=== PATIENT | male | born 1965 | race Caucasian/White ===

== ENCOUNTER → 2017-09-16 | Outpatient (CLI) | payer OTHER ==
[2017-09-16 13:30] LABS: ABSOLUTE BASOPHILS # (AUTO) 0.1 10^3/uL (0.0-0.2); ABSOLUTE EOSINOPHILS # (AUTO) 0.3 10^3/uL (0.0-0.6); ABSOLUTE LYMPHOCYTES (AUTO) 1.4 10^3/uL (0.5-4.7); ABSOLUTE MONOCYTES (AUTO) 0.5 10^3/uL (0.1-1.4); BASOPHILS % (AUTO) 1.2 % (0-2); EOSINOPHILS % (AUTO) 3.1 % (0-6); HEMOGLOBIN 15.7 g/dL (13.5-17.0); HGB HCT DIFFERENCE 2.1; MEAN CORPUSCULAR HEMOGLOBIN 30.5 pg (27.0-33.4); MEAN CORPUSCULAR VOLUME 87 fl (80-97); MONOCYTES % (AUTO) 5.8 % (3-13); RED BLOOD COUNT 5.16 10^6/uL (4.35-5.55); RED CELL DISTRIBUTION WIDTH 15.2 % (11.5-14.0); SEGMENTED NEUTROPHILS % (AUTO) 74.9 % (42-78); WHITE BLOOD COUNT 9.4 10^3/uL (4.0-10.5)
[2017-09-16 13:58] LABS: ALANINE AMINOTRANSFERASE 30 U/L (21-72); ALKALINE PHOSPHATASE 99 U/L (38-126); ANION GAP 12 (5-19); ASPARTATE AMINO TRANSFERASE 15 U/L (17-59); BILIRUBIN,DIRECT 0.5 mg/dL (0.0-0.4); BILIRUBIN,TOTAL 1.1 mg/dL (0.2-1.3); BLOOD UREA NITROGEN 15 mg/dL (7-20); CALCIUM 9.7 mg/dL (8.4-10.2); CARBON DIOXIDE 26 mmol/L (22-30); CHLORIDE 102 mmol/L (98-107); CHOLESTEROL 212.24 mg/dL (0-200); CREATININE RESULT 1.02 mg/dL (0.52-1.25); Direct HDL 34 mg/dL (>40); GLUCOSE 280 mg/dL (75-110); POTASSIUM 4.1 mmol/L (3.6-5.0); SODIUM 139.6 mmol/L (137-145); TOTAL PROTEIN 7.1 g/dL (6.3-8.2); TRIGLYCERIDES 160 mg/dL (<150)
[2017-09-16 14:09] LABS: DIRECT LDL 169 mg/dL (<100)
== END ==
LOC: CCC 12:31
DX: E78.4 Other hyperlipidemia (principal); E10.8 Type 1 diabetes mellitus with unspecified complications; I10 Essential (primary) hypertension
CPT/HCPCS: 36415; 80053; 80061; 83036; 84153; 84443; 85025

== ENCOUNTER 2018-01-26 13:18 | Emergency (ER) | payer SELFPAY ==
--- NOTE | 2018-01-26 14:58 | ER Document Report ---
ED Medical Screen (RME) - General Chief Complaint: Rectal Bleeding Stated Complaint: ABDOMINAL PAIN Time Seen by Provider: 01/26/18 14:56 Notes: pt had dark stool this am with some bright red blood. mild abd cramping. no prev episodes. no colonoscopies. not lightheaded. TRAVEL OUTSIDE OF THE [place] IN LAST 30 DAYS: No - Related Data Allergies/Adverse Reactions: Penicillins Allergy (Verified 01/26/18 13:19) Past Medical History - Social History Chew tobacco use (# tins/day): No Frequency of alcohol use: None Drug Abuse: None - Past Medical History Cardiac Medical History: Reports: Hx Coronary Artery Disease Endocrine Medical History: Reports: Hx Diabetes Mellitus Type 2 Renal/ Medical History: Denies: Hx Peritoneal Dialysis Past Surgical History: Reports: Hx Cardiac Surgery - 2 stents., Hx Coronary Artery Bypass Graft - x3 in 1992.
[2018-01-26 15:21] LABS: ABSOLUTE BASOPHILS # (AUTO) 0.1 10^3/uL (0.0-0.2); ABSOLUTE EOSINOPHILS # (AUTO) 0.1 10^3/uL (0.0-0.6); ABSOLUTE LYMPHOCYTES (AUTO) 1.6 10^3/uL (0.5-4.7); ABSOLUTE MONOCYTES (AUTO) 0.6 10^3/uL (0.1-1.4); ABSOLUTE NEUT (AUTO) 7.6 10^3/uL (1.7-8.2); BASOPHILS % (AUTO) 1.4 % (0-2); EOSINOPHILS % (AUTO) 1.1 % (0-6); HEMATOCRIT 49.6 % (37.9-51.0); HEMOGLOBIN 16.8 g/dL (13.5-17.0); LYMPHOCYTES % (AUTO) 15.5 % (13-45); MEAN CORPUSCULAR HEMOGLOBIN 30.3 pg (27.0-33.4); MEAN CORPUSCULAR HGB CONC 33.8 g/dL (32.0-36.0); MEAN CORPUSCULAR VOLUME 90 fl (80-97); MONOCYTES % (AUTO) 6.5 % (3-13); PLATELET COUNT 254 10^3/uL (150-450); RED BLOOD COUNT 5.54 10^6/uL (4.35-5.55); RED CELL DISTRIBUTION WIDTH 14.8 % (11.5-14.0); SEGMENTED NEUTROPHILS % (AUTO) 75.5 % (42-78); TOTAL CELLS COUNTED % (AUTO) 100 %
[2018-01-26 15:40] LABS: ALANINE AMINOTRANSFERASE 32 U/L (21-72); ALBUMIN 4.6 g/dL (3.5-5.0); ALKALINE PHOSPHATASE 69 U/L (38-126); ANION GAP 10 (5-19); ASPARTATE AMINO TRANSFERASE 18 U/L (17-59); BILIRUBIN,DIRECT 0.2 mg/dL (0.0-0.4); BILIRUBIN,TOTAL 0.6 mg/dL (0.2-1.3); BLOOD UREA NITROGEN 18 mg/dL (7-20); CALCIUM 10.4 mg/dL (8.4-10.2); CARBON DIOXIDE 31 mmol/L (22-30); CHLORIDE 101 mmol/L (98-107); GLUCOSE 120 mg/dL (75-110); POTASSIUM 3.8 mmol/L (3.6-5.0); SODIUM 141.7 mmol/L (137-145); TOTAL PROTEIN 7.5 g/dL (6.3-8.2)
--- NOTE | 2018-01-26 16:12 | ER Document Report ---
ED GI Bleed / Rectal Pain - General Chief Complaint: Rectal Bleeding Stated Complaint: ABDOMINAL PAIN Time Seen by Provider: 01/26/18 14:56 Mode of Arrival: Ambulatory Information source: Patient Notes: 52-year-old male presents to ED for dark stools this morning that is of bright red blood on the paper when he wiped later. He had some mild abdominal cramping earlier but no pain at this time. He states he has been told by his primary care doctor that he needed to get a colonoscopy. He states he has not had any dizziness or lightheadedness. TRAVEL OUTSIDE OF THE [place] IN LAST 30 DAYS: No - HPI Patient complains to provider of: Bright red bld from rect., Dark/tarry stools Onset: This morning Timing/Duration: Intermittent Quality of pain: Cramping - Being earlier none at this time Severity of symptoms: None Pain Level: Denies Emesis description: Bright red blood - 1 paper Rectal bleeding: Bright red blood on paper Rectal foreign body: No Rectal pain with intercourse: No Associated symptoms: None. denies: Constipation, Fainting/dizzy/lightheade, Hard stools Exacerbated by: Denies Relieved by: Denies Similar symptoms previously: Yes Recently seen / treated by doctor: No - Related Data Allergies/Adverse Reactions: Penicillins Allergy (Verified 01/26/18 13:19) Past Medical History - General Information source: Patient - Social History Smoking Status: Current Every Day Smoker Cigarette use (# per day): Yes - 1-1/2-2 packs per day Chew tobacco use (# tins/day): No Smoking Education Provided: Yes - 4 minutes Frequency of alcohol use: None Drug Abuse: None Occupation: None Lives with: Spouse/Significant other Family History: Other - Adopted Patient has suicidal ideation: No Patient has homicidal ideation: No - Past Medical History Cardiac Medical History: Reports: Hx Coronary Artery Disease Pulmonary Medical History: Reports: None EENT Medical History: Reports: None Neurological Medical History: Reports: None Endocrine Medical History: Reports: Hx Diabetes Mellitus Type 2 Renal/ Medical History: Reports: None Malignancy Medical History: Reports None GI Medical History: Reports: None Musculoskeltal Medical History: Reports None Skin Medical History: Reports None Psychiatric Medical History: Reports: None Traumatic Medical History: Reports: None Infectious Medical History: Reports: None Past Surgical History: Reports: Hx Cardiac Surgery - 2 stents., Hx Coronary Artery Bypass Graft - x3 in 1992. Review of Systems - Review of Systems Notes: Constitutional: [PRESENT: as per HPI. ABSENT: chills, fever(s), headache(s), weight gain, weight loss] Eyes: [ABSENT: visual disturbances] Ears: [ABSENT: hearing changes] Cardiovascular: [ABSENT: chest pain, dyspnea on exertion, edema, orthropnea, palpitations] Respiratory: [ABSENT: cough, hemoptysis] Gastrointestinal: constipation, diarrhea, hematemesis, hematochezia, nausea, vomiting] dark stools with blood on the paper Genitourinary: [ABSENT: dysuria, hematuria] Musculoskeletal: [ABSENT: joint swelling] Integumentary: [ABSENT: rash, wounds] Neurological: [ABSENT: abnormal gait, abnormal speech, confusion, dizziness, focal weakness, syncope] Psychiatric: [ABSENT: anxiety, depression, homicidal ideation, suicidal ideation ] Endocrine: [ABSENT: cold intolerance, heat intolerance, menstrual abnormalities , polydipsia, polyuria] Hematologic/Lymphatic: [ABSENT: easy bleeding, easy bruising, lymphadenopathy] Physical Exam - Vital signs Vitals: Temp Pulse Resp BP Pulse Ox 98.6 F 51 L 16 157/82 H 95 01/26/18 13:32 01/26/18 13:32 01/26/18 13:32 01/26/18 13:32 01/26/18 13:32 - Notes Notes: PHYSICAL EXAMINATION: GENERAL: Well-appearing, well-nourished and in no acute distress. HEAD: Atraumatic, normocephalic. EYES: Pupils equal round and reactive to light, extraocular movements intact, sclera anicteric, conjunctiva are normal. ENT: Nares patent, oropharynx clear without exudates. Moist mucous membranes. NECK: Normal range of motion, supple without lymphadenopathy LUNGS: Breath sounds clear to auscultation bilaterally and equal. No wheezes rales or rhonchi. HEART: Regular rate and rhythm without murmurs ABDOMEN: Soft, nontender, nondistended abdomen. No guarding, no rebound. No masses appreciated. Rectal: Excoriated area around the rectum. Positive occult blood. Small amount of hard stool in the rectal vault. Musculoskeletal: Normal range of motion, no pitting or edema. No cyanosis. NEUROLOGICAL: Cranial nerves grossly intact. Normal speech, normal gait. Normal sensory, motor exams PSYCH: Normal mood, normal affect. SKIN: Warm, Dry, normal turgor, no rashes or lesions noted. Course - Re-evaluation Re-evalutation: 01/26/18 18:22 Discussed exam and occult blood with patient as well as the other labs. Copy of labs given to patient to follow-up with his primary doctor. Recommended patient follow-up with GI and have a colonoscopy for this continued episodic rectal bleed. Patient states he had already been recommended the colonoscopy and he was supposed to schedule it. I told him that he would be better off to schedule it sooner than later. Patient and significant other verbalized agreement. - Vital Signs Vital signs: Temp Pulse Resp BP Pulse Ox 98.6 F 54 L 16 156/82 H 96 01/26/18 16:24 01/26/18 16:24 01/26/18 13:32 01/26/18 16:24 01/26/18 16:24 - Laboratory Result Diagrams: 01/26/18 15:10 01/26/18 15:10 Laboratory results interpreted by me: 01/26/18 01/26/18 15:10 15:10 RDW 14.8 H Carbon Dioxide 31 H Glucose 120 H Calcium 10.4 H Discharge - Discharge Clinical Impression: Rectal bleed HTN (hypertension) Qualifiers: Hypertension type: unspecified Qualified Code(s): I10 - Essential (primary) hypertension Condition: Stable Disposition: HOME, SELF-CARE Instructions: Family Physicians / Practices, Gastroenterology Additional Instructions: Rectal Bleeding, Unclear Cause No definite cause has been found for the rectal bleeding you have experienced. Among the possible causes are internal or external hemorrhoids ( internal hemorrhoids can't be felt on the outside), an anal fissure (a crack at the anal ring), infections or inflammatory diseases of the colon, tumors or polyps, or diverticula (diverticula are outpouchings from the colon wall). To establish a cause for your bleeding (or at least make certain there is no serious problem such as a tumor), further evaluation will be necessary. This may include special X-rays, or passage of a scope up into the colon. Be sure to keep your follow-up appointment. Should you develop brisk bleeding, abdominal pain, fever, lightheadedness, or fever, call the doctor or return at once. Acetaminophen Acetaminophen may be taken for pain relief or fever control. It's much safer than aspirin, offering a wider range of "safe" dosages. It is safe during . Some brand names are Tylenol, Panadol, Datril, Anacin 3, Tempra, and Liquiprin. Acetaminophen can be repeated every four hours. The following are maximum recommended dosages: WEIGHT Dose Drops Elixir Chewable( 80mg) (LBS.) drprs=droppers tsp=teaspoon 6 40 mg .4 ml (1/2) 6-11 80 mg .8 ml (full) 1/2 tsp 1 tab 12-16 120 mg 1 1/2 drprs 3/4 tsp 1 1/2 tabs 17-23 160 mg 2 drprs 1 tsp 2 tabs 24-30 240 mg 3 drprs 1 1/2 tsp 3 tabs 30-35 320 mg 2 tsp 4 tabs 36-41 360 mg 2 1/4 tsp 4 1 /2 tabs 42-47 400 mg 2 1/2 tsp 5 tabs 48-53 480 mg 3 tsp 6 tabs 54-59 520 mg 3 1/4 tsp 6 1 /2 tabs 60-64 560 mg 3 1/2 tsp 7 tabs 65-70 600 mg 3 3/4 tsp 7 1 /2 tabs 71-76 640 mg 4 tsp 8 tabs 77-82 720 mg 4 1/2 tsp 9 tabs 83-88 800 mg 5 tsp 10 tabs >89 pounds or adults 650 mg to 900 mg Acetaminophen can be repeated every four hours. Maximum daily dose not to exceed 4000 mg. These maximum recommended dosages are slightly higher than the dosages written on the product container, but these dosages are very safe and well below the toxic dosage for acetaminophen. You need to follow-up with a director of financial planning within the next several days and get an appointment to schedule a colonoscopy. You also had some firm stool on your rectal exam MiraLAX for the next several days would help this. FOLLOW-UP CARE: If you have been referred to a physician for follow-up care, call the physician s office for an appointment as you were instructed or within the next two days. If you experience worsening or a significant change in your symptoms, notify the physician immediately or return to the Emergency Department at any time for re-evaluation. Forms: Smoking Cessation Education, Elevated Blood Pressure
[2018-01-26 16:26] VITALS: BP 156/82
== END 2018-01-26 16:33 | disposition home or self-care (01) ==
LOC: ER 13:18
DX: K62.5 Hemorrhage of anus and rectum (principal); I10 Essential (primary) hypertension; E11.9 Type 2 diabetes mellitus without complications; I25.10 Atherosclerotic heart disease of native coronary artery without angina pectoris; F17.210 Nicotine dependence, cigarettes, uncomplicated; Z71.6 Tobacco abuse counseling; Z95.5 Presence of coronary angioplasty implant and graft; Z95.1 Presence of aortocoronary bypass graft; Z88.0 Allergy status to penicillin
CPT/HCPCS: 36415; 80053; 82272; 85025; 99283

== ENCOUNTER 2018-03-29 20:13 | Emergency (ER) | payer SELFPAY ==
[2018-03-29] MEDS ORDERED: IPRATROPIUM/ALBUTEROL 0.5-2.5 MG/3 ML AMPUL NEB ONE (20:29)
[2018-03-29] MEDS ORDERED: PREDNISONE 20 MG TABLET PO ONE (20:29)
[2018-03-29] MEDS ORDERED: ACETAMINOPHEN 325 MG TABLET PO ONE (20:30)
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
[2018-03-29] MEDS ORDERED: HYDROCODONE/ACETAMINOPHEN 5-325 MG (6 TAB/ER DISP) PO PRN (21:06)
[2018-03-29] MEDS ORDERED: DOXYCYCLINE HYCLATE 100 MG TABLET PO ONE (21:06)
[2018-03-29] MEDS ORDERED: ALBUTEROL SULFATE HFA (90 MCG/PUFF) 8 GM MDI (1 MDI/ER DISP) IH ONE (21:06)
[2018-03-29 23:01] VITALS: BP 160/83
== END 2018-03-29 22:50 | disposition home or self-care (01) ==
LOC: ER 20:13
DX: J44.1 Chronic obstructive pulmonary disease with (acute) exacerbation (principal); S00.81XA Abrasion of other part of head, initial encounter; S00.83XA Contusion of other part of head, initial encounter; V09.20XA Pedestrian injured in traffic accident involving unspecified motor vehicles, initial encounter; F17.200 Nicotine dependence, unspecified, uncomplicated; I25.10 Atherosclerotic heart disease of native coronary artery without angina pectoris; E78.00 Pure hypercholesterolemia, unspecified; E11.9 Type 2 diabetes mellitus without complications; Z95.1 Presence of aortocoronary bypass graft
CPT/HCPCS: 94640; 99284; 71046; 70486; J7512; J3490; J7620

== ENCOUNTER 2018-04-02 12:48 | Emergency (ER) | payer SELFPAY ==
[2018-04-02 12:53] VITALS: BP 139/91
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
[2018-04-02 13:42] LABS: ABSOLUTE BASOPHILS # (AUTO) 0.1 10^3/uL (0.0-0.2); ABSOLUTE EOSINOPHILS # (AUTO) 0.2 10^3/uL (0.0-0.6); ABSOLUTE LYMPHOCYTES (AUTO) 1.1 10^3/uL (0.5-4.7); ABSOLUTE MONOCYTES (AUTO) 0.5 10^3/uL (0.1-1.4); ABSOLUTE NEUT (AUTO) 8.5 10^3/uL (1.7-8.2); BASOPHILS % (AUTO) 0.8 % (0-2); EOSINOPHILS % (AUTO) 1.9 % (0-6); HEMATOCRIT 50.1 % (37.9-51.0); HEMOGLOBIN 17.2 g/dL (13.5-17.0); LYMPHOCYTES % (AUTO) 10.3 % (13-45); MEAN CORPUSCULAR HEMOGLOBIN 31.3 pg (27.0-33.4); MEAN CORPUSCULAR HGB CONC 34.4 g/dL (32.0-36.0); MEAN CORPUSCULAR VOLUME 91 fl (80-97); MONOCYTES % (AUTO) 4.4 % (3-13); PLATELET COUNT 272 10^3/uL (150-450); RED BLOOD COUNT 5.51 10^6/uL (4.35-5.55); RED CELL DISTRIBUTION WIDTH 14.2 % (11.5-14.0); SEGMENTED NEUTROPHILS % (AUTO) 82.6 % (42-78); TOTAL CELLS COUNTED % (AUTO) 100 %; WHITE BLOOD COUNT 10.3 10^3/uL (4.0-10.5)
[2018-04-02 14:38] LABS: ALANINE AMINOTRANSFERASE 39 U/L (21-72); ALKALINE PHOSPHATASE 65 U/L (38-126); ANION GAP 15 (5-19); ASPARTATE AMINO TRANSFERASE 19 U/L (17-59); BILIRUBIN,DIRECT 0.4 mg/dL (0.0-0.4); BILIRUBIN,TOTAL 0.9 mg/dL (0.2-1.3); BLOOD UREA NITROGEN 16 mg/dL (7-20); CALCIUM 10.4 mg/dL (8.4-10.2); CARBON DIOXIDE 24 mmol/L (22-30); CHLORIDE 106 mmol/L (98-107); GLUCOSE 215 mg/dL (75-110); POTASSIUM 3.8 mmol/L (3.6-5.0); SODIUM 144.8 mmol/L (137-145); TOTAL PROTEIN 6.9 g/dL (6.3-8.2)
[2018-04-02 14:39] LABS: ACETAMINOPHEN < 10 ug/mL (10-30); ALCOHOL < 10 mg/dL (NONE DETECTED); SALICYLATE < 1.0 mg/dL (2.0-20.0)
[2018-04-02 14:53] LABS: APPEARANCE,URINE CLEAR; BILIRUBIN,URINE NEGATIVE (NEGATIVE); COLOR,URINE YELLOW; GLUCOSE, URINE 50 mg/dL (NEGATIVE); KETONES,URINE NEGATIVE (NEGATIVE); LEUKOCYTE ESTERASE,URINE NEGATIVE (NEGATIVE); NITRITE,URINE NEGATIVE (NEGATIVE); PROTEIN,URINE 100 mg/dL (NEGATIVE)
[2018-04-02 15:22] LABS: URINE AMPHETAMINES SCREEN NEGATIVE; URINE BARBITURATES SCREEN NEGATIVE; URINE BENZODIAZEPINES SCREEN NEGATIVE; URINE COCAINE SCREEN NEGATIVE; URINE MARIJUANA (THC) SCREEN NEGATIVE; URINE METHADONE SCREEN NEGATIVE; URINE PHENCYCLIDINE SCREEN NEGATIVE
[2018-04-02] MEDS ORDERED: CITALOPRAM HYDROBROMIDE 20 MG TABLET PO ONE (15:32)
[2018-04-02] MEDS ORDERED: BUSPIRONE HCL 10 MG TABLET PO ONE (15:32)
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
--- NOTE | 2018-04-02 19:28 | EKG REPORT ---
SEVERITY:- ABNORMAL ECG - ACCELERATED JUNCTIONAL ESCAPE RHYTHM VENTRICULAR PREMATURE COMPLEX LEFT BUNDLE BRANCH BLOCK : Confirmed by: John Angel MD 02-Apr-2018 19:28:19
== END 2018-04-02 16:14 | disposition home or self-care (01) ==
LOC: ER 12:48
DX: F41.9 Anxiety disorder, unspecified (principal); F32.9 Major depressive disorder, single episode, unspecified; Z63.0 Problems in relationship with spouse or partner; I10 Essential (primary) hypertension; E78.5 Hyperlipidemia, unspecified; F17.200 Nicotine dependence, unspecified, uncomplicated
CPT/HCPCS: 36415; 80053; 80307; 81001; 82962; 85025; 93005; 93010; 99285

== ENCOUNTER 2018-07-06 07:54 | Emergency (ER) | payer SELFPAY ==
[2018-07-06] MEDS ORDERED: ASPIRIN 81 MG TABLET, CHEWABLE PO ONE (08:15)
--- NOTE | 2018-07-06 08:16 | ER Document Report ---
ED Cardiac - General Chief Complaint: Chest Pain Stated Complaint: CHEST PAIN Time Seen by Provider: 07/06/18 08:14 TRAVEL OUTSIDE OF THE [place] IN LAST 30 DAYS: No - Related Data Allergies/Adverse Reactions: Penicillins Allergy (Verified 07/06/18 07:56) Past Medical History - Social History Family History: Other - Adopted - Past Medical History Cardiac Medical History: Reports: Hx Coronary Artery Disease, Hx Hypercholesterolemia, Hx Hypertension Pulmonary Medical History: Reports: Hx COPD Endocrine Medical History: Reports: Hx Diabetes Mellitus Type 2 Renal/ Medical History: Denies: Hx Peritoneal Dialysis Past Surgical History: Reports: Hx Cardiac Surgery - 2 stents., Hx Coronary Artery Bypass Graft - x3 in 1992. Discharge - Discharge Referrals: YAMILKA ARROYO MD [Primary Care Provider] - Follow up as needed
--- NOTE | 2018-07-06 08:31 | ER Document Report ---
ED Cardiac <LAMAR LATHAM - Last Filed: 07/06/18 10:44> - General Mode of Arrival: Ambulatory Information source: Patient TRAVEL OUTSIDE OF THE [place] IN LAST 30 DAYS: No <MARTIR ORTEGA - Last Filed: 07/06/18 11:06> - General Chief Complaint: Chest Pain Stated Complaint: CHEST PAIN Time Seen by Provider: 07/06/18 08:14 Notes: 52-year-old male that presents to the emergency department today with complaints of chest pain described as pressure that began at 0700 this morning. Patient also states that he had had left arm pain. Patient states that when he had this chest pain his heart was racing. On arrival here the patient was in atrial flutter with a heart rate of 124 when he was having pain. The patient 's resting heart rate is in the upper 50s and he is asymptomatic when his heart rate slows to a normal rate. Patient had a three-way bypass in 1992 and has had 2 stents placed with the last one being in 2007. Patient states when the pain begins he has associated shortness of breath. Patient takes aspirin but no other anticoagulants. Patient denies a history of CA. (MARTIR ORTEGA) - Related Data Allergies/Adverse Reactions: Penicillins Allergy (Verified 07/06/18 07:56) Past Medical History - Past Medical History Cardiac Medical History: Reports: Other - Atrial flutter <LAMAR LATHAM - Last Filed: 07/06/18 10:44> - General Information source: Patient - Social History Smoking Status: Current Every Day Smoker Cigarette use (# per day): Yes - 1.5-2ppd Frequency of alcohol use: None Drug Abuse: None Lives with: Family Family History: Reviewed & Not Pertinent, Other - Adopted - Past Medical History Cardiac Medical History: Reports: Hx Coronary Artery Disease, Hx Hypercholesterolemia, Hx Hypertension Pulmonary Medical History: Reports: Hx COPD Endocrine Medical History: Reports: Hx Diabetes Mellitus Type 2 Past Surgical History: Reports: Hx Coronary Artery Bypass Graft - x3 in 1992, Hx Coronary Stent - x2 - last stent placed in 2007 <MARTIR ORTEGA - Last Filed: 07/06/18 11:06> Review of Systems - Review of Systems Constitutional: No symptoms reported EENT: No symptoms reported Cardiovascular: See HPI, Chest pain, Other - pressure Respiratory: See HPI, Short of breath Gastrointestinal: No symptoms reported Genitourinary: No symptoms reported Male Genitourinary: No symptoms reported Musculoskeletal: No symptoms reported Skin: No symptoms reported Hematologic/Lymphatic: No symptoms reported Neurological/Psychological: No symptoms reported -: Yes All other systems reviewed and negative <MARTIR ORTEGA - Last Filed: 07/06/18 11:06> Physical Exam <LAMAR LATHAM - Last Filed: 07/06/18 10:44> <MARTIR ORTEGA - Last Filed: 07/06/18 11:06> - Vital signs Vitals: Resp Pulse Ox 19 92 07/06/18 08:14 07/06/18 08:14 - Notes Notes: Physical Exam: General: Alert, appears well. HEENT: Normocephalic. Atraumatic. PERRL. Extraocular movements intact. Oropharynx clear. Neck: Supple. Non-tender. Respiratory: No respiratory distress. Tachypneic. Wheezing bilaterally. Cardiovascular: Regular rate and rhythm. Abdominal: Normal Inspection. Non-tender. No distension. Normal Bowel Sounds. Back: Non-tender. No deformity or step off. Extremities: Moves all four extremities. Upper extremities: Normal inspection. Normal ROM. Lower extremities: Normal inspection. No edema. Normal ROM. Neurological: Normal cognition. AAOx4. Normal speech. Psychological: Normal affect. Normal Mood. Skin: Warm. Dry. Normal color. (MARTIR ORTEGA) Course - Laboratory Result Diagrams: 07/06/18 08:30 07/06/18 08:30 - Diagnostic Test Radiology reviewed: Image reviewed, Reports reviewed - Chest x-ray shows hyperinflated lungs without acute changes - EKG Interpretation by [place] EKG shows normal: Brick, Intervals, QRS Complexes, ST-T Waves Rate: Tachycardia - 124 Rhythm: A.Flutter Brick/QRS: LBBB - Consults Dr. Kauffman Time consulted: 10:40 Consulted provider: other - [facility]. <LAMAR LATHAM - Last Filed: 07/06/18 10:44> - Laboratory Result Diagrams: 07/06/18 08:30 07/06/18 08:30 <MARTIR ORTEGA - Last Filed: 07/06/18 11:06> - Vital Signs Vital signs: Temp Pulse Resp BP Pulse Ox 23 H 152/92 H 98 07/06/18 10:02 07/06/18 10:02 07/06/18 10:02 - Laboratory Laboratory results interpreted by me: 07/06/18 07/06/18 07/06/18 08:30 08:30 08:30 RDW 14.2 H Seg Neutrophils % 83.9 H Lymphocytes % 7.9 L Absolute Neutrophils 8.6 H Chloride 108 H Creatinine 1.27 H Glucose 409 H* Hemoglobin A1c % CK-MB (CK-2) 5.12 H Albumin 3.4 L 07/06/18 08:30 RDW Seg Neutrophils % Lymphocytes % Absolute Neutrophils Chloride Creatinine Glucose Hemoglobin A1c % 8.1 H CK-MB (CK-2) Albumin Critical Care Note - Critical Care Note Total time excluding time spent on procedures (mins): 50 <LAMAR LATHAM - Last Filed: 07/06/18 10:44> Discharge <LAMAR LATHAM - Last Filed: 07/06/18 10:44> <MARTIR ORTEGA - Last Filed: 07/06/18 11:06> - Discharge Clinical Impression: Atrial flutter with rapid ventricular response, Non-ST elevation myocardial infarction (NSTEMI), Poorly controlled diabetes mellitus, Tobacco abuse Condition: Fair [facility] Referrals: YAMILKA ARROYO MD [Primary Care Provider] - Follow up as needed Scribe Attestation: 07/06/18 08:58 I personally performed the services described in the documentation, reviewed and edited the documentation which was dictated to the scribe in my presence, and it accurately records my words and actions. (LAMAR LATHAM) Scribe Documentation - Scribe Written by Ziyadibe:: Kita Sheth, 07/06/2018 0922 acting as scribe for :: Riaz <MARTIR ORTEGA - Last Filed: 07/06/18 11:06>
[2018-07-06 08:57] LABS: ABSOLUTE BASOPHILS # (AUTO) 0.1 10^3/uL (0.0-0.2); ABSOLUTE EOSINOPHILS # (AUTO) 0.1 10^3/uL (0.0-0.6); ABSOLUTE LYMPHOCYTES (AUTO) 0.8 10^3/uL (0.5-4.7); ABSOLUTE MONOCYTES (AUTO) 0.6 10^3/uL (0.1-1.4); ABSOLUTE NEUT (AUTO) 8.6 10^3/uL (1.7-8.2); BASOPHILS % (AUTO) 1.2 % (0-2); EOSINOPHILS % (AUTO) 0.8 % (0-6); HEMATOCRIT 44.6 % (37.9-51.0); HEMOGLOBIN 15.2 g/dL (13.5-17.0); LYMPHOCYTES % (AUTO) 7.9 % (13-45); MEAN CORPUSCULAR HEMOGLOBIN 31.9 pg (27.0-33.4); MEAN CORPUSCULAR VOLUME 94 fl (80-97); MONOCYTES % (AUTO) 6.2 % (3-13); PLATELET COUNT 200 10^3/uL (150-450); RED BLOOD COUNT 4.76 10^6/uL (4.35-5.55); RED CELL DISTRIBUTION WIDTH 14.2 % (11.5-14.0); SEGMENTED NEUTROPHILS % (AUTO) 83.9 % (42-78); TOTAL CELLS COUNTED % (AUTO) 100 %; WHITE BLOOD COUNT 10.2 10^3/uL (4.0-10.5)
--- NOTE | 2018-07-06 09:05 | RADIOLOGY REPORT (SQ) ---
EXAM DESCRIPTION: CHEST SINGLE VIEW COMPLETED DATE/TIME: 07/06/2018 8:57 am REASON FOR STUDY: cp COMPARISON: 03/29/2018 EXAM PARAMETERS: NUMBER OF VIEWS: One view. TECHNIQUE: Single frontal radiographic view of the chest acquired. RADIATION DOSE: NA LIMITATIONS: None. FINDINGS: LUNGS AND PLEURA: Mild hyperinflation, unchanged finding. No opacities, masses or pneumot horax. No pleural effusion. MEDIASTINUM AND HILAR STRUCTURES: No masses. Contour normal. HEART AND VASCULAR STRUCTURES: Stable appearance. Normal vasculature. BONES: No acute findings. HARDWARE: Prior anterior median sternotomy and CABG. OTHER: No other significant finding. IMPRESSION: 1 No significant interval changes since the previous examination dated 03/29/2018. No acu te findings. TECHNICAL DOCUMENTATION: JOB ID: [id number] [email or web address] Rights Reserved Reading location - IP/workstation name: [email or web address]
[2018-07-06 09:15] LABS: ALANINE AMINOTRANSFERASE 54 U/L (21-72); ALBUMIN 3.4 g/dL (3.5-5.0); ALKALINE PHOSPHATASE 68 U/L (38-126); ANION GAP 10 (5-19); ASPARTATE AMINO TRANSFERASE 56 U/L (17-59); BILIRUBIN,DIRECT 0.3 mg/dL (0.0-0.4); BILIRUBIN,TOTAL 1.3 mg/dL (0.2-1.3); BLOOD UREA NITROGEN 20 mg/dL (7-20); CALCIUM 9.1 mg/dL (8.4-10.2); CARBON DIOXIDE 23 mmol/L (22-30); CHLORIDE 108 mmol/L (98-107); CREATINE KINASE 117 U/L (55-170); PHOSPHORUS 2.6 mg/dL (2.5-4.5); POTASSIUM 3.6 mmol/L (3.6-5.0); SODIUM 141.4 mmol/L (137-145); TOTAL PROTEIN 6.3 g/dL (6.3-8.2)
[2018-07-06 09:25] LABS: CREATINE KINASE MB 5.12 ng/mL (<4.55)
[2018-07-06 09:27] LABS: GLUCOSE 409 mg/dL (75-110)
[2018-07-06 09:30] LABS: TROPONIN I 2.33 ng/mL
[2018-07-06] MEDS ORDERED: HEPARIN SOD (PORCINE) 1,000 UNIT/ML 10 ML VIAL IV ONE (09:30)
[2018-07-06] MEDS ORDERED: HEPARIN SODIUM,PORCINE/D5W 25,000 UNIT/250 ML RTUINJ IV PRN (09:30)
[2018-07-06 09:42] LABS: INTERNATIONAL RATION (INR) 0.99; PROTHROMBIN TIME 13.6 SEC (11.4-15.4)
[2018-07-06 09:43] LABS: PARTIAL THROMBOPLASTIN TIME 28.1 SEC (23.5-35.8)
[2018-07-06] MEDS ORDERED: INSULIN REG, HUMAN 100 UNIT/ML 3 ML VIAL (PYX) IV ONE (09:49)
[2018-07-06] MEDS ORDERED: DILTIAZEM HCL/D5W 125 MG/125 ML RTUINJ IV PRN (10:03)
[2018-07-06] MEDS ORDERED: NICOTINE 21 MG/24 HR PATCH.TD24 TD ONE (10:46)
[2018-07-06 12:19] VITALS: BP 128/102
[2018-07-06] MEDS ORDERED: HEPARIN SOD (PORCINE) 1,000 UNIT/ML 10 ML VIAL IV PRN (12:31)
--- NOTE | 2018-07-06 12:53 | EKG REPORT ---
SEVERITY:- ABNORMAL ECG - ATRIAL FLUTTER, A-RATE 340 LEFT BUNDLE BRANCH BLOCK : Confirmed by: John Angel MD 06-Jul-2018 12:53:17
== END 2018-07-06 12:35 | disposition short-term general hospital (02) ==
LOC: EEVIPCON 07:54 → ER 07:54
DX: I48.92 Unspecified atrial flutter (principal); I21.4 Non-ST elevation (NSTEMI) myocardial infarction; I44.7 Left bundle-branch block, unspecified; R07.89 Other chest pain; E11.65 Type 2 diabetes mellitus with hyperglycemia; M79.602 Pain in left arm; J44.9 Chronic obstructive pulmonary disease, unspecified; R06.02 Shortness of breath; F17.210 Nicotine dependence, cigarettes, uncomplicated; I25.10 Atherosclerotic heart disease of native coronary artery without angina pectoris; I10 Essential (primary) hypertension; Z95.5 Presence of coronary angioplasty implant and graft; Z95.1 Presence of aortocoronary bypass graft; Z79.82 Long term (current) use of aspirin; Z88.0 Allergy status to penicillin
CPT/HCPCS: 93005; 96376; 99291; 96365; 96366; 96368; 36415; 82553; 82962; 82550; 83735; 84100; 85025; 85610; 85730; 80053; 84484; 83036; 71045; 93010; J1644 ×2; J1815; J3490

== ENCOUNTER 2018-07-22 07:47 | Emergency (ER) | payer SELFPAY ==
[2018-07-22 07:54] VITALS: BP 152/80
[2018-07-22] MEDS ORDERED: ACETAMINOPHEN 325 MG TABLET PO ONE (08:58)
--- NOTE | 2018-07-22 08:58 | ER Document Report ---
ED General - General Chief Complaint: Post Surgical Pain Stated Complaint: POST OP COMPLICATION Time Seen by Provider: 07/22/18 08:58 TRAVEL OUTSIDE OF THE [place] IN LAST 30 DAYS: No - HPI Patient complains to provider of: wound check Notes: 52-year-old male presents with a wound check for his left chest. She had recent pacemaker placed. Has some pain at the site of 4/10 throbbing in nature without radiation nothing to make it better or worse. Patient continues to smoke cigarettes he has not been resting he admits he has been using his left arm not following doctor's instructions. Scheduled to follow-up with his surgeon next Friday - Related Data Allergies/Adverse Reactions: Penicillins Allergy (Verified 07/22/18 08:52) Past Medical History - Social History Smoking Status: Current Every Day Smoker Family History: Reviewed & Not Pertinent, Other - Adopted - Past Medical History Cardiac Medical History: Reports: Hx Coronary Artery Disease, Hx Hypercholesterolemia, Hx Hypertension Pulmonary Medical History: Reports: Hx COPD Endocrine Medical History: Reports: Hx Diabetes Mellitus Type 2 Renal/ Medical History: Denies: Hx Peritoneal Dialysis Past Surgical History: Reports: Hx Cardiac Surgery - 2 stents., Hx Coronary Artery Bypass Graft - x3 in 1992, Hx Coronary Stent - x2 - last stent placed in 2007 Review of Systems - Review of Systems Notes: REVIEW OF SYSTEMS: CONSTITUTIONAL: -fevers, -chills EENT: -eye pain, -difficulty swallowing, -nasal congestion CARDIOVASCULAR: -chest pain, -syncope. RESPIRATORY: -cough, -SOB GASTROINTESTINAL: -abdominal pain, -nausea, -vomiting, -diarrhea GENITOURINARY: -dysuria, -hematuria MUSCULOSKELETAL: -back pain, -neck pain SKIN: -rash or skin lesions. HEMATOLOGIC: -easy bruising or bleeding. LYMPHATIC: -swollen, enlarged glands. NEUROLOGICAL: -altered mental status or loss of consciousness, -headache, - neurologic symptoms PSYCHIATRIC: -anxiety, -depression. ALL OTHER SYSTEMS REVIEWED AND NEGATIVE. Physical Exam - Vital signs Vitals: Temp Pulse Resp BP Pulse Ox 98.8 F 67 18 152/80 H 98 07/22/18 07:53 07/22/18 07:53 07/22/18 07:53 07/22/18 07:53 07/22/18 07:53 - Notes Notes: PHYSICAL EXAMINATION: GENERAL: Well-appearing, well-nourished and in no acute distress. HEAD: Atraumatic, normocephalic. EYES: Pupils equal round and reactive to light, extraocular movements intact, sclera anicteric, conjunctiva are normal. ENT: nares patent, oropharynx clear without exudates. Moist mucous membranes. NECK: Normal range of motion, supple without lymphadenopathy LUNGS: Breath sounds clear to auscultation bilaterally and equal. No wheezes rales or rhonchi. HEART: Regular rate and rhythm without murmurs ABDOMEN: Soft, nontender, normoactive bowel sounds. No guarding, no rebound. No masses appreciated. EXTREMITIES: Normal range of motion, no pitting or edema. No cyanosis. NEUROLOGICAL: Cranial nerves grossly intact. Normal speech, normal gait. Normal sensory and motor exams. PSYCH: Normal mood, normal affect. SKIN: Warm, Dry, surgical site left chest pacemaker placement appears well healing. No signs of swelling or redness and no purulent discharge. No tenderness. Course - Re-evaluation Re-evalutation: 07/22/18 09:03 52-year-old man with recent pacemaker placement his left chest a week ago. Presents with pain at the surgical site. No signs of infection, afebrile, heart rate normal patient be discharged home with prescription for analgesia, also given prescription for antibiotics instructed if he starts running a fever he can begin to take the antibiotics he does not need at this time. - Vital Signs Vital signs: Temp Pulse Resp BP Pulse Ox 98.8 F 67 18 152/80 H 98 07/22/18 07:53 07/22/18 07:53 07/22/18 07:53 07/22/18 07:53 07/22/18 07:53 Discharge - Discharge Clinical Impression: Visit for wound check Condition: Stable Disposition: HOME, SELF-CARE Admitting Provider: See your PCP Instructions: Wound Infection ([facility]) Additional Instructions: Call your Surgeon today Prescriptions: Oxycodone HCl [Oxycodone HCl 10 MG Tablet] 1 - 2 tab PO Q6H PRN #15 tablet PRN Reason: PAIN
== END 2018-07-22 09:05 | disposition home or self-care (01) ==
LOC: ER 07:47
DX: G89.18 Other acute postprocedural pain (principal); F17.210 Nicotine dependence, cigarettes, uncomplicated; I25.10 Atherosclerotic heart disease of native coronary artery without angina pectoris; E78.00 Pure hypercholesterolemia, unspecified; Z95.0 Presence of cardiac pacemaker; Z88.0 Allergy status to penicillin
CPT/HCPCS: 99283

== ENCOUNTER 2018-08-21 22:18 | Emergency (ER) | payer SELFPAY ==
[2018-08-21] MEDS ORDERED: ACETAMINOPHEN 325 MG TABLET PO ONE (22:38)
[2018-08-21] MEDS ORDERED: CEFEPIME INJ 1 GM VIAL IM ONE (22:38)
[2018-08-21] MEDS ORDERED: NORMAL SALINE 1000 ML 1,000 ML IV ONE ×2 (22:38→23:06)
[2018-08-21] MEDS ORDERED: LEVOFLOXACIN 750 MG/D5W RTU 750 MG/150 ML RTUPB IV ONE (22:38)
[2018-08-21] MEDS ORDERED: VANCOMYCIN HCL INJ 1000 MG VIAL IV ONE (22:38)
[2018-08-21 22:49] LABS: HEMATOCRIT 42.6 % (37.9-51.0); HEMOGLOBIN 14.7 g/dL (13.5-17.0); MEAN CORPUSCULAR HEMOGLOBIN 31.6 pg (27.0-33.4); MEAN CORPUSCULAR HGB CONC 34.4 g/dL (32.0-36.0); MEAN CORPUSCULAR VOLUME 92 fl (80-97); PLATELET COUNT 183 10^3/uL (150-450); RED BLOOD COUNT 4.64 10^6/uL (4.35-5.55); WHITE BLOOD COUNT 17.6 10^3/uL (4.0-10.5)
--- NOTE | 2018-08-21 22:52 | ER Document Report ---
ED General - General Mode of Arrival: Medic Information source: Patient TRAVEL OUTSIDE OF THE [place] IN LAST 30 DAYS: No <BRADY GAITAN - Last Filed: 08/22/18 01:48> <SONIA HAYES - Last Filed: 08/22/18 06:19> - General Chief Complaint: Fever Stated Complaint: DIFF BREATHING Time Seen by Provider: 08/21/18 22:37 Notes: Patient is a 52 year old male presenting to the emergency department via EMS due to altered mental status. At bedside patient appears very fatigued and is a poor historian. Patient admits to a recent cough and being fatigued. Patient denies any vomiting or dysuria. EMS administered 975 mg of Tylenol due to the patient being febrile, 200 mL of normal saline and 2 L of oxygen. Of significance, patient recently had a pacemaker placed at [facility] approximately 1 month ago. Patient was discharged from the emergency department on 07/22/2018 after complaining of pain at the surgical site. (BRADY GAITAN) - Related Data Allergies/Adverse Reactions: Penicillins Allergy (Verified 08/21/18 23:21) Past Medical History - General Information source: Patient, Emergency Med Personnel, [facility] Records - Social History Smoking Status: Current Every Day Smoker Family History: Reviewed & Not Pertinent, Other - Adopted - Past Medical History Cardiac Medical History: Reports: Hx Coronary Artery Disease, Hx Heart Attack - NSTEMI, Hx Hypercholesterolemia, Hx Hypertension Pulmonary Medical History: Reports: Hx COPD Endocrine Medical History: Reports: Hx Diabetes Mellitus Type 2 Psychiatric Medical History: Reports: Hx Depression - anxiety Past Surgical History: Reports: Hx Cardiac Catheterization - 2 stents, Hx Cardiac Surgery - 2 stents., Hx Coronary Artery Bypass Graft - x3 in 1992, Hx Coronary Stent - x2 - last stent placed in 2007 <BRADY GAITAN - Last Filed: 08/22/18 01:48> Review of Systems - Review of Systems Constitutional: See HPI EENT: No symptoms reported Cardiovascular: No symptoms reported Respiratory: See HPI, Cough Gastrointestinal: No symptoms reported Genitourinary: No symptoms reported Male Genitourinary: No symptoms reported Musculoskeletal: No symptoms reported Skin: No symptoms reported Hematologic/Lymphatic: No symptoms reported Neurological/Psychological: See HPI -: Yes All other systems reviewed and negative <BRADY GAITAN - Last Filed: 08/22/18 01:48> Physical Exam - Vital signs Interpretation: Hypotensive, Tachycardic, Hypoxic, Tachypneic, Febrile - General General appearance: Lethargic In distress: Moderate - HEENT Head: Normocephalic, Atraumatic Cornea: Normal Extraocular movements intact: Yes Pupils: PERRL Nasal: Normal Mucous membranes: Dry Pharynx: Normal Neck: Normal - Respiratory Respiratory status: Tachypnea Chest status: Other - Pacemaker L chest wall, no TTP, mild erythema, no fluctuance appreciated Breath sounds: No: Rales, Rhonchi, Wheezing - Cardiovascular Rhythm: Irregularly irregular, Tachycardia - Abdominal Inspection: Normal Distension: No distension Tenderness: Nontender - Back Back: Normal, Nontender. No: CVA tenderness - Extremities General upper extremity: Normal inspection, Normal ROM General lower extremity: Normal inspection, Normal ROM - Neurological Cognition: Confused Orientation: Disoriented to time, Disoriented to events. No: Disoriented to person, Disoriented to place [place] Coma Scale Eye Opening: To Voice [place] Coma Scale Verbal: Confused [place] Coma Scale Motor: Localizes to Pain [place] Coma Scale Total: 12 Speech: Normal Cranial nerves: Normal Motor strength normal: LUE, RUE, LLE, RLE - Psychological Associated symptoms: Confused - Skin Skin Temperature: Hot Skin Moisture: Dry Skin Color: Flushed <SONIA HAYES - Last Filed: 08/22/18 06:19> - Vital signs Vitals: Resp 39 H 08/21/18 22:22 Course - Laboratory Result Diagrams: 08/21/18 22:26 08/21/18 22:26 <BRADY GAITAN - Last Filed: 08/22/18 01:48> - Laboratory Result Diagrams: 08/21/18 22:26 08/21/18 22:26 <SONIA HAYES - Last Filed: 08/22/18 06:19> - Re-evaluation Re-evalutation: 08/21/18 23:53 Consulted [facility] who states they will contact the hospitalist. 08/22/18 00:30 Hospitalist at [facility] accepts patient to a floor bed. (BRADY GAITAN) 08/21/18 22:30 Patient is a 52-year-old male who presents with fever, tachycardia, tachypnea, possible cough. Patient is confused and cannot tell me the date or time. Denies any recent illness. Per old records, had pacemaker placed at [facility]. Patient was seen about a month ago because he was concerned about an infection of the pacemaker which he did not appear to have at the time. He has not followed up however. Given fever, heart rate, and hypotension, sepsis protocol initiated including IV fluids and antibiotics. Cultures have been sent. Patient was given Tylenol in route. He is also been given ibuprofen for his fever. No complaints except that he is tired. 08/21/18 23:15 Blood pressure is responding well to fluids. Heart rate is showing rapid A. fib with no RVR. Heart rate is trending down from 170. Currently 130s. 08/21/18 23:45 Patient has elevated lactate of 3.2. Leukocytosis with bandemia. No acute findings on chest x-ray. Urinalysis with no acute findings. Patient was discussed with the hospitalist here. He has an elevated troponin and given that pacemaker may be the site of infection, recommend transfer. 08/22/18 00:[address] [facility] He will accept the patient in transfer. 08/22/18 01:15 Patient now in a sinus rhythm with tachycardia to the 150s. Map is still above 80. Patient is complaining of chest pain. Nitro paste and aspirin given, due to heart rate. 08/22/18 02:00 Patient still with chest pain. Small dose of fentanyl ordered. Patient sleeping 08/22/18 02:14 Called to room for possible V. tach. Patient is asleep and has taken his oxygen off. When woken up, he has no complaints of chest pain, trouble breathing. He is actually appearing much better than he has since presentation. Unlikely V. tach. 08/22/18 02:23 Rhythm now down to 120s A. fib. Pressure 101/70. Patient is resting comfortably with no complaints, including no further chest pain. 08/22/18 03:45 Heart rate 90s-100s. Consistent with A. fib. Blood pressure 95/74. Temperature 98.9. Patient is 95% on 4 L with a respiratory rate in the 20s. He is asleep. 08/22/18 04:30 Most recent blood sugar 190. Heart rate 120s 130s. Blood pressure 104/92. Oxygen saturation 98% on 2 L. Temperature 98.5. Respiratory rate 24. No further respiratory distress. Patient is awaiting transfer to [facility] for evaluation of sepsis with pacemakers possible source. Patient is agreeable to this plan. 08/22/18 05:00 Inform the patient's blood pressure is 80/40. This is after 3-1/2 L of fluid. Patient has a possible infected pacemaker in his left chest wall so do not think that IJ or subclavian on the left is a good idea. Overall, he does appear much improved from his initial presentation, but still septic and needs pressure support. I have called back to [facility] and spoken to the ICU physician there, Dr. Dawn , who will accept the patient to the ICU. 08/22/18 06:16 Patient keeps moving back and forth flopping around in the bed, and concerned that anything in his neck or chest wall will get pulled out. Attempted left femoral twice. Got immediate flash with needle, guidewire will feed, but triple -lumen will not. On the right side, patient has what looks like an old femoropopliteal bypass. Concerned that right side is not going to go well either. In the meantime, we will start peripheral Teto-Synephrine. Patient has 2 peripheral lines. He is more awake, but will still need pressure support. He has a bed in the ICU but no transport is available as ground transport has been delayed for the last 6 hours and air transport is not available due to fog. Patient is medically stable for transfer. (SONIA HAYES) - Vital Signs Vital signs: Temp Pulse Resp BP Pulse Ox 98.5 F 25 H 88/48 L 98 08/22/18 05:10 08/22/18 05:10 08/22/18 05:15 08/22/18 05:10 - Laboratory Laboratory results interpreted by me: 08/21/18 08/21/18 08/21/18 22:26 22:26 22:26 WBC 17.6 H Seg Neuts % (Manual) 89 H Band Neutrophils % 6 H Lymphocytes % (Manual) 1 L Abs Neuts (Manual) 16.7 H Abs Lymphs (Manual) 0.2 L PT 22.4 H VBG pCO2 VBG HCO3 Sodium 132.2 L Carbon Dioxide 20 L Creatinine 1.38 H Est GFR (Non-Af Amer) 54 L Glucose 480 H* POC Glucose Lactic Acid Total Bilirubin 1.7 H Direct Bilirubin 0.7 H Total Protein 5.9 L Albumin 3.1 L Urine Protein Urine Glucose (UA) Urine Ketones Urine Blood 08/21/18 08/21/18 08/21/18 22:26 22:45 23:25 WBC Seg Neuts % (Manual) Band Neutrophils % Lymphocytes % (Manual) Abs Neuts (Manual) Abs Lymphs (Manual) PT VBG pCO2 31.2 L VBG HCO3 19.7 L Sodium Carbon Dioxide Creatinine Est GFR (Non-Af Amer) Glucose POC Glucose Lactic Acid 3.2 H Total Bilirubin Direct Bilirubin Total Protein Albumin Urine Protein 100 H Urine Glucose (UA) >=500 H Urine Ketones 20 H Urine Blood SMALL H 08/22/18 08/22/18 08/22/18 01:53 02:28 03:53 WBC Seg Neuts % (Manual) Band Neutrophils % Lymphocytes % (Manual) Abs Neuts (Manual) Abs Lymphs (Manual) PT VBG pCO2 VBG HCO3 Sodium Carbon Dioxide Creatinine Est GFR (Non-Af Amer) Glucose POC Glucose 366 H 343 H Lactic Acid 3.7 H Total Bilirubin Direct Bilirubin Total Protein Albumin Urine Protein Urine Glucose (UA) Urine Ketones Urine Blood Procedures - Central Line Left Femoral Time completed: 06:00 Consent obtained: Yes Central line pre-insertion: Sterile PPE donned, Chloraprep applied, Sterile drapes applied Central line lumen type: Triple Anesthetic type: 1% Lidocaine Ultrasound guided: Yes Line secured with sutures: No Number of attempts: 2 - coulf pass guide wirse but not triple lumen. <SONIA HAYES - Last Filed: 08/22/18 06:19> Critical Care Note - Critical Care Note Total time excluding time spent on procedures (mins): 180 - Evaluation and management of sepsis, chest pain, arrhythmia, coordination of transfer, multiple re-evaluations, counseling of patient <SONIA HAYES - Last Filed: 08/22/18 06:19> Discharge <BRADY GAITAN - Last Filed: 08/22/18 01:48> <SONIA HAYES - Last Filed: 08/22/18 06:19> - Discharge Clinical Impression: Respiratory distress, Septic shock Pacemaker infection Qualifiers: Encounter type: initial encounter Qualified Code(s): T82.7XXA - Infection and inflammatory reaction due to other cardiac and vascular devices, implants and grafts, initial encounter Sepsis Qualifiers: Sepsis type: sepsis due to unspecified organism Qualified Code(s): A41.9 - Sepsis, unspecified organism Condition: Stable Disposition: ON LICENSE OF [facility] Scribe Attestation: 08/22/18 04:59 I personally performed the services described in the documentation, reviewed and edited the documentation which was dictated to the scribe in my presence, and it accurately records my words and actions. (SONIA HAYES) Scribe Documentation - Scribe Written by Kita:: Kita Santillan, 08/21/2018 23:10 acting as scribe for :: Aury <BRADY GAITAN - Last Filed: 08/22/18 01:48>
[2018-08-21 22:54] LABS: INTERNATIONAL RATION (INR) 1.87; PROTHROMBIN TIME 22.4 SEC (11.4-15.4)
--- NOTE | 2018-08-21 23:02 | RADIOLOGY REPORT (SQ) ---
EXAM DESCRIPTION: XR CHEST 1 VIEW COMPLETED DATE/TME: 08/21/2018 22:39 CLINICAL HISTORY: 52 years Male, fever COMPARISON: 8.13.18 NUMBER OF VIEWS/TECHNIQUE: 1/AP FINDINGS: Adequate lung volume, clear parenchyma, moderately enlarged cardiac silhouette, cardiac stimulator with leads, sternotomy, and intact bony thorax. Stable. IMPRESSION: No acute cardiopulmonary findings.
[2018-08-21] MEDS ORDERED: DILTIAZEM HCL INJ 25 MG/5 ML VIAL IV ONE (23:04)
[2018-08-21 23:06] LABS: ALANINE AMINOTRANSFERASE 28 U/L (21-72); ALBUMIN 3.1 g/dL (3.5-5.0); ALKALINE PHOSPHATASE 84 U/L (38-126); ANION GAP 12 (5-19); ASPARTATE AMINO TRANSFERASE 18 U/L (17-59); BILIRUBIN,DIRECT 0.7 mg/dL (0.0-0.4); BILIRUBIN,TOTAL 1.7 mg/dL (0.2-1.3); BLOOD UREA NITROGEN 17 mg/dL (7-20); CALCIUM 8.7 mg/dL (8.4-10.2); CARBON DIOXIDE 20 mmol/L (22-30); CHLORIDE 100 mmol/L (98-107); POTASSIUM 3.8 mmol/L (3.6-5.0); SODIUM 132.2 mmol/L (137-145); TOTAL PROTEIN 5.9 g/dL (6.3-8.2)
[2018-08-21 23:13] LABS: ABSOLUTE LYMPHOCYTES# (MANUAL) 0.2 10^3/uL (0.5-4.7); ABSOLUTE MONOCYTES # (MANUAL) 0.7 10^3/uL (0.1-1.4); ABSOLUTE NEUTROPHILS# (MANUAL) 16.7 10^3/uL (1.7-8.2); BAND NEUTROPHILS % (MANUAL) 6 % (3-5); BASOPHILS % (MANUAL) 0 % (0-2); EOSINOPHILS % (MANUAL) 0 % (0-6); LYMPHOCYTES % (MANUAL) 1 % (13-45); MONOCYTES % (MANUAL) 4 % (3-13); PLATELET COMMENT ADEQUATE; SEGMENTED NEUTROPHILS % (MAN) 89 % (42-78); TOTAL CELLS COUNTED 100
[2018-08-21 23:14] LABS: PLATELET LARGE PRESENT
[2018-08-21 23:15] LABS: OVALOCYTES SLIGHT; POIKILOCYTOSIS SLIGHT; POLYCHROMASIA SLIGHT
[2018-08-21 23:23] LABS: APPEARANCE,URINE SLIGHTLY-CLOUDY; BILIRUBIN,URINE NEGATIVE (NEGATIVE); COLOR,URINE YELLOW; GLUCOSE, URINE >=500 mg/dL (NEGATIVE); KETONES,URINE 20 mg/dL (NEGATIVE); LEUKOCYTE ESTERASE,URINE NEGATIVE (NEGATIVE); NITRITE,URINE NEGATIVE (NEGATIVE); PROTEIN,URINE 100 mg/dL (NEGATIVE); URINE SPECIFIC GRAVITY 1.031; UROBILINOGEN,URINE NEGATIVE mg/dL (<2.0)
[2018-08-21] MEDS ORDERED: IBUPROFEN 800 MG TABLET PO ONE (23:29)
[2018-08-21 23:35] LABS: GLUCOSE 480 mg/dL (75-110)
[2018-08-21 23:45] LABS: VENOUS BLOOD BASE EXCESS -3.7 mmol/L; VENOUS BLOOD HCO3 19.7 mmol/L (20-32); VENOUS BLOOD PCO2 31.2 mmHg (35-63); VENOUS BLOOD PH 7.42 (7.30-7.42)
[2018-08-21] MEDS ORDERED: INSULIN REG, HUMAN 100 UNIT/ML 3 ML VIAL (PYX) IV ONE (23:54)
[2018-08-22] MEDS ORDERED: NORMAL SALINE 1000 ML 1,000 ML IV ONE ×2 (00:30→02:13)
[2018-08-22] MEDS ORDERED: NITROGLYCERIN 2% OINTMENT 1 GM PACKET TP ONE (00:53)
[2018-08-22] MEDS ORDERED: ASPIRIN 81 MG TABLET, CHEWABLE PO ONE (00:54)
[2018-08-22] MEDS ORDERED: FENTANYL CITRATE INJ/PF 100 MCG/2 ML AMPUL IV ONE (01:14)
[2018-08-22] MEDS ORDERED: ADENOSINE INJ/PF 6 MG/2 ML SDV IV ONE (01:54)
[2018-08-22] MEDS ORDERED: AMIODARONE HCL 150 MG in DEXTROSE 5%-WATER 100 ML IV ONE (02:07)
[2018-08-22] MEDS ORDERED: AMIODARONE HCL INJ 150 MG/3 ML VIAL IV ONE (02:09)
[2018-08-22] MEDS ORDERED: INSULIN REG, HUMAN 100 UNIT/ML 3 ML VIAL (PYX) IV ONE ×2 (02:13→03:58)
[2018-08-22] MEDS ORDERED: DEXTROSE 5%-WATER 250 ML with PHENYLEPHRINE HCL 40 MG IV PRN ×2 (05:22)
[2018-08-22] MEDS ORDERED: PHENYLEPHRINE HCL INJ/PF 10 MG/1 ML SDV ONE (05:31)
[2018-08-22] MEDS ORDERED: ACETAMINOPHEN 325 MG TABLET PO ONE (06:15)
[2018-08-22 08:40] VITALS: BP 125/102
--- NOTE | 2018-08-22 20:23 | EKG REPORT ---
SEVERITY:- ABNORMAL ECG - ATRIAL FIBRILLATION, V-RATE 76-158 NONSPECIFIC INTRAVENTRICULAR CONDUCTION DELAY ANTERIOR Q WAVES, POSSIBLY DUE TO LVH : Confirmed by: Ragini Osullivan MD 22-Aug-2018 20:23:04
--- NOTE | 2018-08-22 20:23 | EKG REPORT ---
SEVERITY:- ABNORMAL ECG - IVCD, CONSIDER ATYPICAL LBBB ATRIAL FLUTTER WITH RVR : Confirmed by: Ragini Osullivan MD 22-Aug-2018 20:22:58
== END 2018-08-22 08:37 | disposition short-term general hospital (02) ==
LOC: ER 22:18
DX: T82.7XXA Infection and inflammatory reaction due to other cardiac and vascular devices, implants and grafts, initial encounter (principal); T81.12XA Postprocedural septic shock, initial encounter; A41.9 Sepsis, unspecified organism; Y83.1 Surgical operation with implant of artificial internal device as the cause of abnormal reaction of the patient, or of later complication, without mention of misadventure at the time of the procedure; R41.82 Altered mental status, unspecified; R50.9 Fever, unspecified; R07.9 Chest pain, unspecified; R06.03 Acute respiratory distress; F17.200 Nicotine dependence, unspecified, uncomplicated; E78.00 Pure hypercholesterolemia, unspecified; I25.10 Atherosclerotic heart disease of native coronary artery without angina pectoris; I10 Essential (primary) hypertension; E11.9 Type 2 diabetes mellitus without complications; J44.9 Chronic obstructive pulmonary disease, unspecified; Z95.1 Presence of aortocoronary bypass graft; Z88.0 Allergy status to penicillin; I25.2 Old myocardial infarction; Y71.3 Surgical instruments, materials and cardiovascular devices (including sutures) associated with adverse incidents
CPT/HCPCS: 93005 ×2; 99291; 99292; 96372; 96361; 51702; 96375; 96365; 96368; 36415; 87040; 87086; 82962; 80307; 85025; 85610; 87077; 80053; 81001; 84484; 87186; 82803; 83605; 71045; 93010 ×2; 36556; C1751; C1769; J3010; J0692; J2370; J1815 ×2; J3370; J0282; J1956; J0153